=== PATIENT | female | born 1965 | race Caucasian/White ===

== ENCOUNTER → 2018-09-01 | Outpatient (CLI) | payer OTHER | LOC: MC.RAD 09:00 | DX: Z12.31 Encounter for screening mammogram for malignant neoplasm of breast (principal) ==

== ENCOUNTER 2019-09-21 07:10 | Emergency (ER) | payer OTHER ==
[~2019-09-21] VITALS: Ht 160 cm; Wt 81.8 kg
[2019-09-21 07:24] VITALS: TEMP 98.2
[2019-09-21] MEDS ORDERED: NORCO 325 MG-51 TAB PO (09:25)
[2019-09-21 10:04] VITALS: BP 132/88; PULSE 68
== END 2019-09-21 10:04 | disposition home or self-care (01) ==
LOC: COL.ER 07:10
DX: S52.502A Unspecified fracture of the lower end of left radius, initial encounter for closed fracture (principal); R40.2412 Glasgow coma scale score 13-15, at arrival to emergency department; W01.0XXA Fall on same level from slipping, tripping and stumbling without subsequent striking against object, initial encounter; Y92.410 Unspecified street and highway as the place of occurrence of the external cause
CPT/HCPCS: J3010; Q4050

== ENCOUNTER → 2020-05-23 | Outpatient (CLI) | payer OTHER ==
[~2020-05-23] MED LIST: NORCO 325 MG-51 TAB PO
== END ==
LOC: MC.RAD 09:24
DX: Z12.31 Encounter for screening mammogram for malignant neoplasm of breast (principal)

== ENCOUNTER → 2021-08-20 | Outpatient (CLI) | payer BC | LOC: MC.RAD 08:55 | DX: Z12.31 Encounter for screening mammogram for malignant neoplasm of breast (principal) ==

== ENCOUNTER → 2023-02-20 | Outpatient (CLI) | payer BC | LOC: MC.RAD 11:14 | DX: Z12.31 Encounter for screening mammogram for malignant neoplasm of breast (principal) ==

== ENCOUNTER 2023-11-17 11:42 | Inpatient (IN) | payer BC ==
[~2023-11-17] VITALS: Ht 157.5 cm; Wt 80.0 kg
[2023-11-17] MEDS ORDERED: LR 1,000 ML IV ONE (12:30)
[2023-11-17] MEDS ORDERED: Ondansetron 4 MG/2 ML VIAL IV ONE (12:30)
[2023-11-17] MEDS ORDERED: Morphine 4 MG/ML VIAL IV PRN ×2 (12:30→15:15)
[2023-11-17 12:44] LABS: HEMOGLOBIN 11.9 g/dl (12.5-16.0); MEAN CELL VOLUME 81 fl (80.0-100.0); MEAN CORPUSCULAR HEMOGLOBIN 26 pg (27-31); MEAN CORPUSCULAR HGB CONC 32 g/dl (33.0-37.0); MEAN PLATELET VOLUME 9.5 fl (7.4-10.4); PLATELET COUNT 470 K/mm3 (130-400); RED BLOOD COUNT 4.57 M/mm3 (4.10-5.30); REDCELL DISTRIBUTION WIDTH-CV 13.9 % (11.5-14.5)
[2023-11-17 12:46] LABS: HEMATOCRIT 36.8 % (37.0-47.0)
[2023-11-17] MEDS ORDERED: Iohexol 300 - 100 ML VIAL IV ONE (12:56)
[2023-11-17 12:57] LABS: ALBUMIN 2.9 g/dL (3.5-5.0); BILIRUBIN,TOTAL 0.7 mg/dL (0.2-1.2); C-REACTIVE PROTEIN 31.2 mg/dL (0.00-0.50); CALCIUM 9.7 mg/dL (8.4-10.2); CREATININE, serum 0.66 mg/dL (0.57-1.11); POTASSIUM 3.7 mEq/L (3.5-4.5); TOTAL PROTEIN 7.6 g/dl (6.2-8.1)
[2023-11-17] MEDS ORDERED: NS 100 ML IV SCH (12:57)
[2023-11-17 14:03] LABS: BAND 17 % (0-10); EOSINOPHIL 1 % (0-4); LYMPHOCYTE 5 % (20.0-51.0); NEUTROPHILS 69 % (42.0-75.2); PLATELET ESTIMATE INCREASED (NORMAL)
[2023-11-17 14:05] LABS: MICROCYTOSIS 1+
[2023-11-17 14:13] LABS: PH 6.5 (5.0-8.5); URINE APPEARANCE CLEAR (CLEAR/HAZY); URINE BLOOD NEGATIVE (NEGATIVE); URINE COLOR YELLOW (YELLOW); URINE GLUCOSE NEGATIVE (NEGATIVE); URINE KETONE 2+ (NEGATIVE); URINE NITRATE NEGATIVE (NEGATIVE); URINE PROTEIN(semi-quant) NEGATIVE (NEGATIVE); URINE UROBILINOGEN 0.2 E.U/dL (0.2-1.0)
[2023-11-17 14:22] LABS: COLLECTION METHOD CLEAN CATCH
[2023-11-17] MEDS ORDERED: NEXIUM 40MG40 MG PO (15:07)
[2023-11-17] MEDS ORDERED: SOOLANTRA TOP (15:09)
[2023-11-17] MEDS ORDERED: Ondansetron 4 MG/2 ML VIAL IV PRN (15:15)
[2023-11-17] MEDS ORDERED: LR 1,000 ML IV SCH (15:15)
[2023-11-17 15:45] VITALS: BP 127/74; PULSE 78; TEMP 98.3
--- NOTE | 2023-11-17 15:55 | NUR ---
1530-PT ADMITTED TO 357 FROM ER FOR RECTAL PAIN AND BLEEDING. PT AMBULATED TO BED FROM WHEELCHAIR. PT IS ON RA. VSS. PT STATES PAIN IS BETTER. PT ORIENTED TO ROOM AND FLOOR. ADMISSION COMPLETED. PT STATES THAT SAW HER IN ER AND STATED SHE COULD HAVE LIQUIDS, BUT CURRENT ORDER IS NPO. AWAITING REPLY FROM FOR DIET AND PT WOULD ALSO LIKE SOMETHING NON-NARCOTIC FOR PAIN. PT INSTRUCTED TO CALL WITH ALL NEEDS.
[2023-11-17] MEDS ORDERED: Pantoprazole 40 MG in NS 10 ML IV SCH (16:50)
[2023-11-17] MEDS ORDERED: oxyCODONE 5 MG TAB PO PRN (17:00)
[2023-11-17] MEDS ORDERED: Acetaminophen 500 MG TAB PO PRN (17:00)
[2023-11-17 17:20] VITALS: BP_SYST 127
[2023-11-17 21:13] VITALS: BP 110/69; PULSE 77; TEMP 98.7
[2023-11-17 21:22] VITALS: BP_SYST 110
[2023-11-18] VITALS (12 sets, daily range): BP systolic 90–112; BP diastolic 57–71; PULSE 75–97; TEMP 98.2–99.9
--- NOTE | 2023-11-18 01:17 | NUR ---
patient lying in bed, alert and oriented x4. denies chest pain and shortness of breath. IV in LF is patent, site is CDi with LR running at 125 ml/hr. pain reported in lower abd and rectum when having BM, per request zofran given for slight nausea and mark given for pain, upon reassessment pt reported pain much more tolerable, resting in bed with eyes closed. no remarkable skin findings. ambulating with steady gait. call light within reach. pt has no further needs, questions or concerns at this time.
[2023-11-18 06:46] LABS: HEMOGLOBIN 10.4 g/dl (12.5-16.0); MEAN CELL VOLUME 81 fl (80.0-100.0); MEAN CORPUSCULAR HEMOGLOBIN 26 pg (27-31); MEAN CORPUSCULAR HGB CONC 33 g/dl (33.0-37.0); MEAN PLATELET VOLUME 9.7 fl (7.4-10.4); PLATELET COUNT 422 K/mm3 (130-400); RED BLOOD COUNT 3.97 M/mm3 (4.10-5.30)
[2023-11-18 07:04] LABS: ALBUMIN 2.5 g/dL (3.5-5.0); BILIRUBIN,TOTAL 0.6 mg/dL (0.2-1.2); CALCIUM 8.8 mg/dL (8.4-10.2); CREATININE, serum 0.72 mg/dL (0.57-1.11); POTASSIUM 3.5 mEq/L (3.5-4.5); TOTAL PROTEIN 6.1 g/dl (6.2-8.1)
--- NOTE | 2023-11-18 07:45 | NUR ---
Assessment completed. Zofran administered for c/o nausea. Reports that she doesn't have an appetite and only able to take a couple bites of jello. On CL. Tylenol 650mg administered for c/o pelvic pain and rectal pain, rating pain 6/10. Reports loose stools every hour. Uses moisture barrier for rectal tenderness. LR infuses at 125ml/hr without s/s IV related complications. Independent in room.
[2023-11-18 08:57] LABS: BAND 41 % (0-10); EOSINOPHIL 1 % (0-4); LYMPHOCYTE 10 % (20.0-51.0); NEUTROPHILS 38 % (42.0-75.2); PLATELET ESTIMATE INCREASED (NORMAL)
--- NOTE | 2023-11-18 09:04 | NUR ---
graphic pre press trades worker met with pt to discuss discharge planning. She reports to live with her , Bronson [phone] in [place]. She sees ERIK Carmichael for PCP needs and obtains medications from [facility] with no difficulties. Pt reports to be independent with ADLS and uses no DME. She verified to have [employer] insurance. Pt does not have a DPOA-HC and is agreeable to her being NOK. She expressed no further needs. Discharge Plan: home
--- NOTE | 2023-11-18 14:30 | NUR ---
Tylenol administered for c/o rectal and pelvic pain- rates pain 6/10. Reports pain increases after have loose stool, which she has hourly. Stool specimen collected and sent to lab. Zofran administered for c/o nausea. Able to eat about 6 spoonfuls of chicken broth but otherwise not tolerating any other liquids well.
[2023-11-18 15:49] LABS: CLOSTRIDIUM DIFF A/B NEG
[2023-11-18] MEDS ORDERED: D5NS & 20 mEq KCl 1,000 ML IV SCH ×2 (16:30→20:30)
[2023-11-18] MEDS ORDERED: methylPREDNISolone Sod Succ 40 MG/ML VIAL IV SCH (17:30)
--- NOTE | 2023-11-18 18:37 | NUR ---
Pt advanced to general diet and tolerated well, no c/o nausea at this time. Anusol suppository given to patietn to self administer for c/o rectal pain. Pt had had several loose stools today, which varies from scant amount up to 200ml- blood noted in stool. Pt independent in room. Denies needs at this time.
[2023-11-19] VITALS (8 sets, daily range): BP systolic 104–114; BP diastolic 69–775; PULSE 75–87; TEMP 98–98.4
--- NOTE | 2023-11-19 01:18 | NUR ---
patient lying in bed, alert and oriented x4. denies chest pain and shortness of breath. having loose BMs with occasional clots. pt refusing full dose of suppository at this time, x1 suppository of 25 mg given, second dose wasted at this time. IV in LF is patent, site CDI with D5NS with 20 mEq potassium running at 125 ml/hr. ambulating with steady gait. call light within reach. pt has no further needs, questions or concerns at this time
[2023-11-19 07:11] LABS: HEMOGLOBIN 10.2 g/dl (12.5-16.0); MEAN CELL VOLUME 81 fl (80.0-100.0); MEAN CORPUSCULAR HEMOGLOBIN 26 pg (27-31); MEAN CORPUSCULAR HGB CONC 32 g/dl (33.0-37.0); PLATELET COUNT 418 K/mm3 (130-400); RED BLOOD COUNT 3.92 M/mm3 (4.10-5.30); REDCELL DISTRIBUTION WIDTH-CV 14.1 % (11.5-14.5)
[2023-11-19 07:19] LABS: ALBUMIN 2.3 g/dL (3.5-5.0); BILIRUBIN,TOTAL 0.3 mg/dL (0.2-1.2); CALCIUM 8.8 mg/dL (8.4-10.2); CREATININE, serum 0.62 mg/dL (0.57-1.11); POTASSIUM 3.8 mEq/L (3.5-4.5); TOTAL PROTEIN 6.1 g/dl (6.2-8.1)
[2023-11-19 07:22] LABS: HEMATOCRIT 31.6 % (37.0-47.0)
[2023-11-19 08:00] LABS: BAND 21 % (0-10); LYMPHOCYTE 8 % (20.0-51.0); NEUTROPHILS 68 % (42.0-75.2)
[2023-11-19 08:01] LABS: PLATELET ESTIMATE INCREASED (NORMAL)
--- NOTE | 2023-11-19 10:49 | NUR ---
Patient A&Ox4. Patient sitting up in her chair bedside. Pt reports no pain since last night. D5NS with potassium chloride infusing at a rate of 125mL/h infusing 20G right eliud IV. Pt reports diarrhea with clots are still present in the stool. IV zosyn infusion started and patient immediately complained of bilateral toe and finger swelling. Infusion was stopped and patient stood up and walked around for a minute. After a minute she reported the swelling has gone down. Infusion restarted. Pt sitting in bed and instructed to call if any new issues arise. Pt verbalized understanding. call winn within reach.
[2023-11-19] MEDS ORDERED: ANUSOL-HC SUPPO25 MG RC (15:41)
[2023-11-19] MEDS ORDERED: FLAGYL500 MG PO (15:41)
--- NOTE | 2023-11-19 16:51 | NUR ---
Patient at bedside to review instructions for discharge. IV discontinued and patient collected all belongs. Patient educated on post discharge medications and instructions. Patient verbalized understanding Pt discharged ambulatory to home accompanied by her .
--- NOTE | 2023-11-19 20:14 | NUR ---
Agree with Shara Fry RN assessment and note except patient reports no nausea or pain since receiving anusol pr yesterday 11/17. Pt ambulated in hallway several times today. Tolerated general diet without c/o nausea.
== END 2023-11-19 16:56 | disposition home or self-care (01) | DRG 392 ==
LOC: COL.ER 11:42 → MEDICAL 14:38
PROVIDERS: Family Medicine; ADMIT Surgery
DX: K52.89 Other specified noninfective gastroenteritis and colitis (principal); J30.2 Other seasonal allergic rhinitis; K21.9 Gastro-esophageal reflux disease without esophagitis; Z85.820 Personal history of malignant melanoma of skin; Z90.89 Acquired absence of other organs; Z90.710 Acquired absence of both cervix and uterus; Z79.899 Other long term (current) drug therapy; Z96.652 Presence of left artificial knee joint
CPT/HCPCS: J2405; J2470; J2543; J2919; J3480; J7120; Q9967

== ENCOUNTER 2023-12-22 17:34 | Inpatient (IN) | payer BC ==
[~2023-12-22] VITALS: Ht 157.5 cm; Wt 69.9 kg
[~2023-12-22 17:34] MED LIST changes: +ANUSOL-HC SUPPO25 MG RC; +FLAGYL500 MG PO; +NEXIUM 40MG40 MG PO; +SOOLANTRA TOP
[2023-12-22 18:48] VITALS: BP 122/69; PULSE 77; TEMP 99.3
--- NOTE | 2023-12-22 18:50 | NUR ---
Pt up to medical unit, to hospital via private vehicle from home. Per pt she had called Dr. Castrejon due to abdominal pain/feelings of constipation - had an outpatient CT and then was alerted to go to hospital. Ambulated with nursing staff to room on medical unit - Nereida Liu APRN notified of arrival, telephone order for diet order. Oriented to room, assisted to order food. Vital signs obtained. In chair, call light within reach.
[2023-12-22] MEDS ORDERED: Heparin 5,000 UNITS/ML 1 ML VIAL IV PRN (19:15)
[2023-12-22] MEDS ORDERED: Heparin/D5W 250 ML IV SCH (19:15)
[2023-12-22] MEDS ORDERED: Heparin 5,000 UNITS/ML 1 ML VIAL IV ONE (19:15)
[2023-12-22 19:37] VITALS: BP 120/73; PULSE 77; TEMP 98.3
[2023-12-22] MEDS ORDERED: Ondansetron 4 MG/2 ML VIAL IV PRN (19:45)
[2023-12-22] MEDS ORDERED: Docusate Sodium 100 MG CAP PO PRN (19:45)
[2023-12-22] MEDS ORDERED: Acetaminophen 325 MG TAB PO PRN (19:45)
[2023-12-22] MEDS ORDERED: Polyethylene Glycol 3350 17 GM PDS PO PRN (19:45)
[2023-12-22 19:52] LABS: BASO % 0.2 % (0.0-2.0); EOS # 0.1 K/mm3 (0.0-0.7); EOS % 0.5 % (0.0-4.0); GRAN # 18.8 K/mm3 (1.4-6.5); GRAN % 85.8 % (42.2-75.2); HEMOGLOBIN 10.6 g/dl (12.5-16.0); LYMPH # 1.7 K/mm3 (1.2-3.4); LYMPH % 7.7 % (20.0-51.0); MEAN CELL VOLUME 84 fl (80.0-100.0); MEAN CORPUSCULAR HEMOGLOBIN 26 pg (27-31); MEAN CORPUSCULAR HGB CONC 32 g/dl (33.0-37.0); MEAN PLATELET VOLUME 9.9 fl (7.4-10.4); MONO # 1.2 K/mm3 (0.1-0.6); MONO % 5.3 % (1.7-9.3); PLATELET COUNT 295 K/mm3 (130-400); RED BLOOD COUNT 4.01 M/mm3 (4.10-5.30); REDCELL DISTRIBUTION WIDTH-CV 17.7 % (11.5-14.5)
[2023-12-22 19:58] LABS: HEMATOCRIT 33.5 % (37.0-47.0)
[2023-12-22] MEDS ORDERED: INFLECTRA100 MG IV (20:03)
[2023-12-22] MEDS ORDERED: IMURAN 50MG TAB50 MG PO (20:04)
[2023-12-22] MEDS ORDERED: PREDNISONE1 MG PO (20:06)
[2023-12-22] MEDS ORDERED: MIRALAX PA17 GM/Dose PO (20:07)
[2023-12-22] MEDS ORDERED: MASON NATURAL2000 IU PO (20:08)
[2023-12-22] MEDS ORDERED: TYLENOL 500MG500 MG PO (20:09)
[2023-12-22 20:10] LABS: INR 1.3 (0.8-3.0); PROTHROMBIN TIME 14.5 SECONDS (9.7-12.8)
[2023-12-22 20:11] LABS: ALBUMIN 3.1 g/dL (3.5-5.0); BILIRUBIN,TOTAL 1.1 mg/dL (0.2-1.2); CALCIUM 9.3 mg/dL (8.4-10.2); CREATININE, serum 0.7 mg/dL (0.57-1.11); POTASSIUM 3.7 mEq/L (3.5-4.5); TOTAL PROTEIN 7.3 g/dl (6.2-8.1)
[2023-12-22 20:12] LABS: PARTIAL THROMBOPLASTIN TIME 30.9 SECONDS (26.0-37.0)
[2023-12-22 20:15] VITALS: BP_SYST 120
--- NOTE | 2023-12-22 20:15 | NUR ---
Admitted to medical floor- was a direct admit, FREDI, dx: portal vein thrombus, will be started on a heparin drip , Nereida NICOLAS is writing orders and will be up to see pt. Pt denies SOB, states has dull low abd pain 08/02-- states when we get a pain med ordered she would take one --- Steady on feet - put in a gown-- Tele ordered, So will have aide go down to get a tele box, did have supper already tonight- no requests, states she does not have any HS meds that are needed for tonight-- med rec completed.
--- NOTE | 2023-12-22 20:50 | NUR ---
Nereida NICOLAS called with WBC 21.9
[2023-12-22] MEDS ORDERED: ANUSOL-HC SUPPO25 MG RC (23:04)
[2023-12-22 23:14] VITALS: BP 103/66; PULSE 85; TEMP 101
[2023-12-22] MEDS ORDERED: Acetaminophen 500 MG TAB PO PRN (23:15)
[2023-12-22] MEDS ORDERED: oxyCODONE 5 MG TAB PO PRN (23:15)
[2023-12-22] MEDS ORDERED: cefTRIAXone 1 G in Water For Injection,Sterile 10 ML IV SCH (23:15)
[2023-12-22] MEDS ORDERED: metroNIDAZOLE 100 ML IV SCH (23:15)
[2023-12-22] MEDS ORDERED: NS 1,000 ML IV SCH (23:15)
--- NOTE | 2023-12-22 23:15 | NUR ---
Temp 101, Nereida NICOLAS is in pts room doing her assessment/questions- aware of the temp- will write orders for antibiotics/blood cultures
[2023-12-23] VITALS (14 sets, daily range): BP systolic 91–103; BP diastolic 58–66; PULSE 70–89; TEMP 97.9–102.6
[2023-12-23 00:35] LABS: COLLECTION METHOD CLEAN CATCH
[2023-12-23 01:26] LABS: PH 6.5 (5.0-8.5); URINE APPEARANCE CLEAR (CLEAR/HAZY); URINE BLOOD TRACE (NEGATIVE); URINE COLOR YELLOW (YELLOW); URINE GLUCOSE NEGATIVE (NEGATIVE); URINE KETONE 1+ (NEGATIVE); URINE NITRATE NEGATIVE (NEGATIVE); URINE PROTEIN(semi-quant) 1+ (NEGATIVE)
--- NOTE | 2023-12-23 04:07 | NUR ---
Nereida NICOLAS aware of B/P sbp 97
--- NOTE | 2023-12-23 04:07 | NUR ---
KEZIA noble AWARE OF TEMP 102.6,, WAS GIVEN TYLENOL 1000MG ORDERED.
--- NOTE | 2023-12-23 04:30 | NUR ---
Temp down to 99.2
--- NOTE | 2023-12-23 05:24 | NUR ---
Heparin drip at 13.5cc/hr - will get next hepxa at 0945 this morning- resting at this time, has NS at 100cc/hr, also getting Zosyn IV as ordered.
[2023-12-23] MEDS ORDERED: Esomeprazole 40 MG **** subs to Pantoprazole 40 MG PO SCH (07:00)
[2023-12-23] MEDS ORDERED: predniSONE 5 MG TAB PO SCH (08:00)
[2023-12-23] MEDS ORDERED: azaTHIOprine 50 MG TAB PO SCH (09:00)
[2023-12-23] MEDS ORDERED: Polyethylene Glycol 3350 17 GM PDS PO SCH (09:00)
[2023-12-23 10:43] LABS: MEAN CELL VOLUME 82 fl (80.0-100.0); MEAN CORPUSCULAR HGB CONC 32 g/dl (33.0-37.0); MEAN PLATELET VOLUME 9.5 fl (7.4-10.4); PLATELET COUNT 260 K/mm3 (130-400); RED BLOOD COUNT 3.57 M/mm3 (4.10-5.30); REDCELL DISTRIBUTION WIDTH-CV 17.5 % (11.5-14.5)
[2023-12-23 10:47] LABS: HEMATOCRIT 29.3 % (37.0-47.0); HEMOGLOBIN 9.5 g/dl (12.5-16.0); MEAN CORPUSCULAR HEMOGLOBIN 27 pg (27-31)
[2023-12-23 10:56] LABS: CALCIUM 8.5 mg/dL (8.4-10.2); CREATININE, serum 0.7 mg/dL (0.57-1.11); POTASSIUM 3.6 mEq/L (3.5-4.5)
--- NOTE | 2023-12-23 11:48 | NUR ---
Taker Off Braker Machine met with patient to discuss discharge planning. Patient lives in [place] with her , Bronson (ph#[phone]) and sees ERIK Mon for primary care. Patient gets medications from [facility] and does not use any DME. Patient is independent with ADLS and employed at [employer]. Patient does not have DPOA-HC but was interested in taking home the form, which SW provided. Discharge Plan: Home
--- NOTE | 2023-12-23 20:30 | NUR ---
UPON SHIFT ASSESSMENT, PATIENT WAS AWAKE IN BED AND A&O X 4. SHE C/O 5/10 LOWER ABDOMINAL PAIN, PRN TYLENOL ADMINISTERED. HEP GTTS RUNNING AT 14.5 WITH NEXT HEPXa SCHEDULED FOR 34. ABDOMEN SOFT AND BOWEL SOUNDS PRESENT, VS ARE WNL, HOWEVER, BP SOFT 91/58 SYSTOLIC WITH MAP OF 69. PATIENT DENIES BLOODY OR TARRY STOOLS. STATES NO FURTHER NEEDS AT THIS TIME. CALL LIGHT WITHIN REACH.
--- NOTE | 2023-12-23 21:37 | NUR ---
CALL PLACED TO E-PHARMACIST DVID. REQUESTED RETIMING OF ZOSYN- THERE WAS DELAY IN ADMINISTERATION @12:43 D/T PROCEDURE.
--- NOTE | 2023-12-23 21:51 | NUR ---
CALL PLACED TO [facility]. LAB ALERTED BLOOD CULTURE POSITIVE FOR STREP SPECIES.
[2023-12-24] VITALS (11 sets, daily range): BP systolic 91–106; BP diastolic 58–74; PULSE 67–84; TEMP 98–98.4
--- NOTE | 2023-12-24 01:10 | NUR ---
HEPXa RESULTED-0.37 NO CHANGE IN RATE THIS IS GOAL.
[2023-12-24 06:31] LABS: MEAN CELL VOLUME 83 fl (80.0-100.0); MEAN CORPUSCULAR HGB CONC 32 g/dl (33.0-37.0); MEAN PLATELET VOLUME 10.5 fl (7.4-10.4); PLATELET COUNT 282 K/mm3 (130-400); RED BLOOD COUNT 3.33 M/mm3 (4.10-5.30); REDCELL DISTRIBUTION WIDTH-CV 17.6 % (11.5-14.5)
[2023-12-24 06:33] LABS: HEMATOCRIT 27.5 % (37.0-47.0); HEMOGLOBIN 8.9 g/dl (12.5-16.0); MEAN CORPUSCULAR HEMOGLOBIN 27 pg (27-31)
[2023-12-24 06:49] LABS: CALCIUM 8.4 mg/dL (8.4-10.2); CREATININE, serum 0.63 mg/dL (0.57-1.11); POTASSIUM 3.4 mEq/L (3.5-4.5)
--- NOTE | 2023-12-24 07:45 | NUR ---
PATIENT AWAKE AND ALERT SITTING UP IN BED. PATIENT DOES HAVE A COMPLAINT OF SOME ABDOMNIAL PAIN, HOWEVER SHE THINKS IT IS POSSIBLY D/T STRESS, SHE WAS EMOTIONAL EARLIER. PER PATIENT SHE WILL INFORM THIS RN IF SHE NEEDS ANY PAIN MEDICATION. HEP GTT HUNG, GOAL AT THIS TIME.. CALL LIGHT WITHIN REACH. PATIENT IS AWAKE ALERT AND SITTING UP IN BED EATING BREAKFAST.
[2023-12-24] MEDS ORDERED: Iohexol 300 - 100 ML VIAL IV ONE (11:45)
--- NOTE | 2023-12-24 13:29 | NUR ---
CLOSING NOTE - PATIENT RESTING IN BED WATCHING TV. 1000 ML NS RUNNING AT 75 ML/HR, NEW BAG HUNG. O2 NOT ON, PATIENT DENIES SOB. NO C/O OF PAIN AT THIS TIME.
--- NOTE | 2023-12-24 19:45 | NUR ---
Initial shift assessment done- VSS, states has very slight pain under right rib cage-- feels like it is probably gas,, has been up walking the halls- states she will take some Tylenol with night meds tonight. Continues with heparin IV drip at 1450 unit/hr , but will start Eliquis tonight at 2100 and then DC the heparin drip at 2200 tonight. Pt aware and understands. Continues with NS at 100cc/hr and getting Zosyn IV as ordered.Afebrile, Tele on- SR.
[2023-12-24] MEDS ORDERED: Apixaban 5 MG TABLET PO SCH (21:00)
--- NOTE | 2023-12-24 22:20 | NUR ---
Heparin judd bueno dc at this time. Pt was started on Eliquis tonight.
[2023-12-25] VITALS (7 sets, daily range): BP systolic 90–115; BP diastolic 59–76; PULSE 65–78; TEMP 98–99.2
--- NOTE | 2023-12-25 05:50 | NUR ---
States slept well last night, having some gas pain-- will give simethicone as ordered.
--- NOTE | 2023-12-25 07:05 | NUR ---
patient is awake and alert, sitting up in bed. patient voices feeling rested to day, and is eager to discharge. patient given update on plan of care. ivf infusing as ordered. patient denies any pain at this time. awaiting blood culture results for possible discharge. Call light within reach.
--- NOTE | 2023-12-25 07:35 | NUR ---
Patient sitting in bed upon entering the room. Patient just returned to room from ambulating in the hallway. IV in left forearm with NS running at 100ml/hr. Denies pain at this time. Vital signs and assessment completed. Denies concerns at this time. Call light within reach and bed in low position.
[2023-12-25 08:54] LABS: HEMATOCRIT 30.7 % (37.0-47.0); HEMOGLOBIN 9.5 g/dl (12.5-16.0); MEAN CELL VOLUME 84 fl (80.0-100.0); MEAN CORPUSCULAR HEMOGLOBIN 26 pg (27-31); MEAN CORPUSCULAR HGB CONC 31 g/dl (33.0-37.0); MEAN PLATELET VOLUME 9.5 fl (7.4-10.4); PLATELET COUNT 346 K/mm3 (130-400); RED BLOOD COUNT 3.65 M/mm3 (4.10-5.30); REDCELL DISTRIBUTION WIDTH-CV 17.7 % (11.5-14.5)
[2023-12-25 09:17] LABS: CALCIUM 9.6 mg/dL (8.4-10.2); CREATININE, serum 0.73 mg/dL (0.57-1.11); POTASSIUM 3.3 mEq/L (3.5-4.5)
--- NOTE | 2023-12-25 13:30 | NUR ---
Patient sitting in chair upon entering room. NS and IV Zosyn running in left forearm. Patient denies pain at this time Call light within reach. Report given to floor nurse.
[2023-12-25] MEDS ORDERED: ELIQUIS 5MG PO (16:33)
[2023-12-25] MEDS ORDERED: AMOXICILLIN 8751 TAB PO (16:34)
--- NOTE | 2023-12-25 17:18 | NUR ---
PATIENT IV AN TELE DC. PATIENT GIVEN DISCAHRGE INSTRUCTIONS AND EDUCAITON WELL ELIQUIS COUPON/COPAY SHEET. PATIENT DENEIS ANY FURTHER NEEDS AT THIS TIME. PATIENT PRESCRIPTION SENT TO [facility] AT THE REQUEST OF THE PATIENT.
--- NOTE | 2023-12-25 17:33 | NUR ---
PATIENT TAKEN VIA WHEELCHAIR TO ER ENTRANCE WHERE SHE LEFT IN STABLE CONDITION WITH HER .
--- NOTE | 2023-12-25 18:11 | NUR ---
PRESCRIPTIONS WERE NOT RESENT TO DILLIONS DISCUSSED. PATIENT ARRIVED TO PHARMACY AND PRESCRIPTIONS WERE NOT SENT. THIS RN PLACED TELEPHONE ORDERS FOR PRESCRIPTIONS.
== END 2023-12-25 17:33 | disposition home or self-care (01) | DRG 871 ==
LOC: MEDICAL 17:34
PROVIDERS: Internal Medicine; Nurse Practitioner Family; ADMIT Internal Medicine
DX: A41.9 Sepsis, unspecified organism (principal); I81 Portal vein thrombosis; K55.069 Acute infarction of intestine, part and extent unspecified; K50.90 Crohn's disease, unspecified, without complications; E87.1 Hypo-osmolality and hyponatremia; D64.9 Anemia, unspecified; K22.70 Barrett's esophagus without dysplasia; K52.89 Other specified noninfective gastroenteritis and colitis; K44.9 Diaphragmatic hernia without obstruction or gangrene; K21.9 Gastro-esophageal reflux disease without esophagitis; Z85.820 Personal history of malignant melanoma of skin; Z90.49 Acquired absence of other specified parts of digestive tract; Z90.710 Acquired absence of both cervix and uterus; Z88.8 Allergy status to other drugs, medicaments and biological substances; Z88.7 Allergy status to serum and vaccine
CPT/HCPCS: J1644; J2543; J7030; J7500; J7512; Q9967